=== PATIENT | male | born 1960 | race African-American/Black ===

== ENCOUNTER → 2017-11-14 12:14 | Outpatient (CLI) | payer MEDICARE, SELFPAY ==
[2017-11-14 14:13] LABS: Prostate Specific Ag Screen 0.1 ng/mL (0.0-4.0)
== END ==
PROVIDERS: PCP Family Medicine; Visit Provider Urology
DX: Z12.5 Encounter for screening for malignant neoplasm of prostate (principal); C61 Malignant neoplasm of prostate
CPT/HCPCS: 36415; G0103

== ENCOUNTER → 2018-03-13 13:18 | Outpatient (CLI) | payer MEDICARE, SELFPAY | PROVIDERS: Visit Provider Urology | DX: C61 Malignant neoplasm of prostate (principal) | CPT/HCPCS: 36415; 84153 ==